=== PATIENT | female | born 1975 | race African-American/Black ===

== ENCOUNTER 2017-02-25 06:27 | Emergency (ER) | payer SELFPAY ==
[~2017-02-25] VITALS: Ht 162.6 cm; Wt 65.0 kg
[2017-02-25 06:29] VITALS: BP 188/83; PULSE 95; RESP 16; TEMP 98; O2SAT 100
[2017-02-25 06:46] VITALS: TEMP 98.5
[2017-02-25] MEDS ORDERED: SODIUM CHLOR 0.9% 1000 ML INJ 1,000 ML IV SCH (06:46)
--- NOTE | 2017-02-25 06:54 | PD ---
HPI Chief Complaint: Abdominal Pain Time Seen by Provider: 06:46 Travel History International Travel<30 days: No Contact w/Intl Traveler<30days: No Traveled to known affect area: No History of Present Illness HPI 41 year-old female presents to the emergency department by private transportation for complaint of 10 over 10 periumbilical abdominal pain. Patient states she's had abdominal discomfort for approximately 4 days. Patient reports she was awakened from sleep on Sunday morning with severe abdominal pain. Patient states she has not had a bowel movement since one week. Patient states she took milk of magnesia with loose diarrheal type stool times one and then again this morning was awakened from sleep and took an additional dose of milk of magnesia with a loose diarrheal like stool. Patient has had nausea and vomiting. Patient has vomited bile. Patient denies any coffee-ground emesis hematemesis melena or hematochezia. Patient denies any fever or chills. Patient states attempting to eat make symptoms worse. Patient denies any previous abdominal surgeries. Patient denies any dysuria frequency urgency hematuria or flank pain. Patient denies personal history of CAD, hypertension, dyslipidemia, diabetes, peptic ulcer disease, biliary colic, pancreatitis, colitis. Patient denies pain referred to the right lower quadrant or left lower quadrant. Patient was told disease she had an umbilical hernia but has not noticed any area of soft tissue swelling or point tenderness. Patient admits to remote tubal ligation, tobacco use, and 2 beers per day alcohol use. [facility] Past Medical History Narrative Medical Tubal ligation, tobacco use, alcohol use; nursing notes reviewed Medical History: Denies Significant Hx Diminished Hearing: No Tetanus Vaccination: > 5 Years Influenza Vaccination: No ?: Not Tubal Ligation: Yes (19 years ago) Past Surgical History Surgical History: No Previous Surgery Social History Alcohol Use: Yes (2 beers daily) Tobacco Use: Yes Substance Use: Yes (marijuana occaisonally ) Allergies-Medications (Allergen,Severity, Reaction): Coded Allergies: No Known Allergies (Unverified , 02/25/17) Reported Meds & Prescriptions Reported Meds & Active Scripts Active No Active Prescriptions or Reported Medications Review of Systems Except as stated in HPI: all other systems reviewed are Neg General / Constitutional: No: Fever, Chills HENT: No: Congestion Cardiovascular: No: Chest Pain or Discomfort Respiratory: No: Shortness of Breath Gastrointestinal: Positive: Nausea, Vomiting, Abdominal Pain, Constipation, No : Diarrhea, Hematemesis, Hematochezia, Loss of Appetite Genitourinary: No: Dysuria, Flank Pain Musculoskeletal: No: Myalgias, Arthralgias Skin: No Rash Neurologic: No: Weakness Psychiatric: Positive: Anxiety Hematologic/Lymphatic: No: Lymph Node Enlargement Physical Exam Narrative GENERAL: Well-developed well-nourished pleasant female in obvious discomfort intermittently tearful. SKIN: Warm and dry. HEAD: Normocephalic. EYES: No scleral icterus. No injection or drainage. NECK: Supple, trachea midline. No JVD or lymphadenopathy. CARDIOVASCULAR: Regular rate and rhythm without murmurs, gallops, or rubs. RESPIRATORY: Breath sounds equal bilaterally. No accessory muscle use. GASTROINTESTINAL: Abdomen soft, reproducible periumbilical tenderness without mass or reducible mass without guarding or rebound, nondistended. MUSCULOSKELETAL: No cyanosis, or edema. BACK: Nontender without obvious deformity. No CVA tenderness. Data Data Last Documented VS Vital Signs Date Time Temp Pulse Resp B/P Pulse Ox O2 Delivery O2 Flow Rate FiO2 02/25/17 06:46 98.5 02/25/17 06:29 95 16 188/83 100 Room Air Orders Complete Blood Count With Diff (02/25/17 06:46) Comprehensive Metabolic Panel (02/25/17 06:46) Lipase (02/25/17 06:46) Urinalysis - C+S If Indicated (02/25/17 06:46) Ct Abd/Pel W Iv Contrast(Rout) (02/25/17 06:46) Iv Access Insert/Monitor (02/25/17 06:46) Ecg Monitoring (02/25/17 06:46) Oximetry (02/25/17 06:46) Ondansetron Inj (Zofran Inj) (02/25/17 07:00) Sodium Chlor 0.9% 1000 Ml Inj (Ns 1000 M (02/25/17 06:46) Sodium Chloride 0.9% Flush (Ns Flush) (02/25/17 07:00) Chest, Single Ap (02/25/17 06:46) Morphine Inj (Morphine Inj) (02/25/17 07:00) Electrocardiogram (02/25/17 ) MDM Medical Decision Making Medical Screen Exam Complete: Yes Emergency Medical Condition: Yes Medical Record Reviewed: Yes Differential Diagnosis Abdominal pain, pancreatitis, hernia, biliary colic, diverticulitis, appendicitis, obstipation Narrative Course Patient placed on monitor; IV access obtained; patient administered Zofran 4 mg IV morphine sulfate 3 mg IV; EKG ordered Patient's care will be signed over to oncoming physician, Dr Rayo, at 7:00 AM for follow-up of pending diagnostics and patient disposition. Sepsis Criteria SIRS Criteria (2 or more): Heart rate over 90 Scripts No Active Prescriptions or Reported Meds Clementina Beckford MD Feb 25, 2017 06:54
[2017-02-25] MEDS ORDERED: MORPHINE SULFATE 4 MG/ML INJ IV PUSH ONE (07:00)
[2017-02-25] MEDS ORDERED: ONDANSETRON HCL 4 MG/2 ML VIAL IVP ONE (07:00)
[2017-02-25] MEDS ORDERED: SODIUM CHLORIDE 0.9% FLUSH 10 ML FLUSH IV FLUSH PRN (07:00)
--- NOTE | 2017-02-25 07:04 | PD ---
Physical Exam Date Seen by Provider: Feb 25, 2017 Narrative GENERAL: SKIN: Warm and dry. HEAD: Atraumatic. Normocephalic. EYES: Pupils equal and round. No scleral icterus. No injection or drainage. ENT: No nasal bleeding or discharge. Mucous membranes pink and moist. NECK: Trachea midline. No JVD. CARDIOVASCULAR: Regular rate and rhythm. RESPIRATORY: No accessory muscle use. Clear to auscultation. Breath sounds equal bilaterally. GASTROINTESTINAL: Abdomen soft, RLQ ARE WITH TTP, nondistended. Hepatic and splenic margins not palpable. MUSCULOSKELETAL: Extremities without clubbing, cyanosis, or edema. No obvious deformities. NEUROLOGICAL: Awake and alert. No obvious cranial nerve deficits. Motor grossly within normal limits. Five out of 5 muscle strength in the arms and legs. Normal speech. PSYCHIATRIC: Appropriate mood and affect; insight and judgment normal. Data Data Last Documented VS Vital Signs Date Time Temp Pulse Resp B/P Pulse Ox O2 Delivery O2 Flow Rate FiO2 02/25/17 07:13 98.1 76 16 159/83 100 Room Air Orders Complete Blood Count With Diff (02/25/17 06:46) Comprehensive Metabolic Panel (02/25/17 06:46) Lipase (02/25/17 06:46) Urinalysis - C+S If Indicated (02/25/17 06:46) Ct Abd/Pel W Iv Contrast(Rout) (02/25/17 06:46) Iv Access Insert/Monitor (02/25/17 06:46) Ecg Monitoring (02/25/17 06:46) Oximetry (02/25/17 06:46) Ondansetron Inj (Zofran Inj) (02/25/17 07:00) Sodium Chlor 0.9% 1000 Ml Inj (Ns 1000 M (02/25/17 06:46) Sodium Chloride 0.9% Flush (Ns Flush) (02/25/17 07:00) Chest, Single Ap (02/25/17 06:46) Morphine Inj (Morphine Inj) (02/25/17 07:00) Electrocardiogram (02/25/17 ) Iohexol 350 Inj (Omnipaque 350 Inj) (02/25/17 08:16) Labs Laboratory Tests Test 02/25/17 02/25/17 06:55 08:25 White Blood Count 12.9 TH/MM3 Red Blood Count 4.48 MIL/MM3 Hemoglobin 13.1 GM/DL Hematocrit 39.3 % Mean Corpuscular Volume 87.8 FL Mean Corpuscular Hemoglobin 29.2 PG Mean Corpuscular Hemoglobin 33.3 % Concent Red Cell Distribution Width 15.2 % Platelet Count 275 TH/MM3 Mean Platelet Volume 9.6 FL Neutrophils (%) (Auto) 74.5 % Lymphocytes (%) (Auto) 17.6 % Monocytes (%) (Auto) 5.6 % Eosinophils (%) (Auto) 1.7 % Basophils (%) (Auto) 0.6 % Neutrophils # (Auto) 9.6 TH/MM3 Lymphocytes # (Auto) 2.3 TH/MM3 Monocytes # (Auto) 0.7 TH/MM3 Eosinophils # (Auto) 0.2 TH/MM3 Basophils # (Auto) 0.1 TH/MM3 CBC Comment DIFF FINAL Differential Comment Sodium Level 141 MEQ/L Potassium Level 4.3 MEQ/L Chloride Level 107 MEQ/L Carbon Dioxide Level 26.7 MEQ/L Anion Gap 7 MEQ/L Blood Urea Nitrogen 9 MG/DL Creatinine 0.78 MG/DL Estimat Glomerular Filtration 98 ML/MIN Rate Random Glucose 93 MG/DL Calcium Level 9.0 MG/DL Total Bilirubin 0.2 MG/DL Aspartate Amino Transf 19 U/L (AST/SGOT) Alanine Aminotransferase 21 U/L (ALT/SGPT) Alkaline Phosphatase 114 U/L Total Protein 7.5 GM/DL Albumin 3.8 GM/DL Lipase 167 U/L Urine Color LIGHT-YELLOW Urine Turbidity CLEAR Urine pH 7.5 Urine Specific [place] 1.015 Urine Protein NEG mg/dL Urine Glucose (UA) NEG mg/dL Urine Ketones NEG mg/dL Urine Occult Blood NEG Urine Nitrite NEG Urine Bilirubin NEG Urine Urobilinogen LESS THAN 2.0 MG/DL Urine Leukocyte Esterase NEG Urine Squamous Epithelial 1 /hpf Cells Microscopic Urinalysis Comment CULT NOT INDICATED MDM Medical Record Reviewed: Yes Supervised Visit with EDI: No Interpretation(s) NSR 78, NL INTERVALS, NO STEMI PATTERN NOTED Differential Diagnosis COLITIS V DIVERTIC VS APPY Narrative Course received sign out at [address] feng, currently patient is resting comfortably and awaiting labs/ct results. OF 0830 CBC AND CMP ALL WNL, CXR WNL, CT A/P DONE BUT AWAITING RESULTS, PT CONTINUES TO BE COMFORTABLE FROM A PAIN STANDPOINT. PT ADVISED OF ALL RESULTS WHICH INCLUDE COLITIS, WILL GIVE ABX PO X 1 AND D/C HOME PATIENT IS STABLE AND TOLERATING PO Diagnosis Primary Impression: ASCENDING COLITIS WITHOUT ABSCESS Patient Instructions: Colitis (ED), General Instructions Scripts Metronidazole (Flagyl)500 Mg Abl313 Mg PO TID #21 TAB Ref 0 Prov:Ruben Rayo MD 02/25/17 Ondansetron Odt (Zofran Odt)4 Mg Tab4 Mg SL Q6HR PRN (Nausea/Vomiting) #12 TAB Prov:Ruben Rayo MD 02/25/17 Tramadol (Ultram)50 Mg Tab50 Mg PO Q4H PRN (PAIN) #28 TAB Prov:Ruben Rayo MD 02/25/17 Ciprofloxacin 500 Mg Xna504 Mg PO BID #14 TAB Prov:Ruben Rayo MD 02/25/17 Disposition: 01 DISCHARGE HOME Condition: Stable Ruben Rayo MD Feb 25, 2017 07:04
[2017-02-25 07:13] VITALS: BP 159/83; PULSE 76; RESP 16; TEMP 98.1; O2SAT 100
[2017-02-25 07:23] LABS: AUTOMATED NEUTROPHIL # 9.6 TH/MM3 (1.8-7.7); BASOPHIL # 0.1 TH/MM3 (0-0.2); BASOPHIL % 0.6 % (0.0-2.0); EOSINOPHIL # 0.2 TH/MM3 (0-0.4); EOSINOPHIL % 1.7 % (0.0-4.0); HEMATOCRIT 39.3 % (35.0-46.0); HEMO FLAGS DIFF FINAL; LYMPH % 17.6 % (9.0-44.0); LYMPHOCYTE # 2.3 TH/MM3 (1.0-4.8); MEAN CELL VOLUME 87.8 FL (80.0-100.0); MEAN CORPUSCULAR HEMOGLOBIN 29.2 PG (27.0-34.0); MEAN CORPUSCULAR HGB CONC 33.3 % (32.0-36.0); MONO % 5.6 % (0.0-8.0); NEUT % 74.5 % (16.0-70.0); PLATELET COUNT 275 TH/MM3 (150-450); RED BLOOD COUNT 4.48 MIL/MM3 (4.00-5.30); RED CELL DISTRIBUTION WIDTH 15.2 % (11.6-17.2); WHITE BLOOD COUNT 12.9 TH/MM3 (4.0-11.0)
[2017-02-25 07:43] LABS: ALKALINE PHOSPHATASE 114 U/L (45-117); TOTAL BILIRUBIN ADULT 0.2 MG/DL (0.2-1.0)
[2017-02-25 07:44] LABS: ALT (GPT) 21 U/L (10-53); ANION GAP 7 MEQ/L (5-15); AST (GOT) 19 U/L (15-37); BICARBONATE 26.7 MEQ/L (21.0-32.0); BLOOD UREA NITROGEN 9 MG/DL (7-18); CHLORIDE 107 MEQ/L (98-107); GLOMERULAR FILTRATION RATE 98 ML/MIN (>89); POTASSIUM 4.3 MEQ/L (3.5-5.1); SODIUM (NA) 141 MEQ/L (136-145)
[2017-02-25] MEDS ORDERED: IOHEXOL 350 MG/ML 10 ML VIAL (for RAD DIAG) IV ONE (08:16)
--- NOTE | 2017-02-25 08:24 | RADRPT ---
EXAM DATE/TIME: 02/25/2017 07:31 [facility] COMPARISON: No previous studies available for comparison. INDICATIONS : Upper abdominal pain.Evaluate for free air. MEDICAL HISTORY : None. SURGICAL HISTORY : None. ENCOUNTER: Initial ACUITY: 4 - 6 days PAIN SCORE: 6/10 LOCATION: Bilateral lower chest FINDINGS: A single view of the chest demonstrates the lungs to be symmetrically aerated without evidence of mas s, infiltrate or effusion. The cardiomediastinal contours are unremarkable. Osseous structures are intact. CONCLUSION: No acute disease. Zenon Sykes MD on February 25, 2017 at 8:20 Board Certified Radiologist. This report was verified electronically.
--- NOTE | 2017-02-25 08:44 | RADRPT ---
EXAM DATE/TIME: 02/25/2017 08:13 [facility] COMPARISON: No previous studies available for comparison. INDICATIONS : Periumbilical pain for one week. IV CONTRAST: 81 cc Omnipaque 350 (iohexol) IV ORAL CONTRAST: No oral contrast ingested. RADIATION DOSE: 8.22 CTDIvol (mGy) MEDICAL HISTORY : None SURGICAL HISTORY : Tubal ligation. ENCOUNTER: Initial ACUITY: 1 week PAIN SCALE: 7/10 LOCATION: umbilical abdomen TECHNIQUE: Volumetric scanning of the abdomen and pelvis was performed. Using automated exposure control and ad justment of the mA and/or kV according to patient size, radiation dose was kept as low as reasonably achievable to obtain optimal diagnostic quality images. FINDINGS: Lung bases are clear. There is a mild mural thickening of the colon, especially the right colon with pericolonic mild fat s tranding characteristic of a mild colitis predominantly on the right. The appendix is normal in calib er. No acute findings in the liver, spleen, adrenals, kidneys or pancreas. Calcified gallstone in the gal lbladder without biliary ductal dilatation. The uterus has a multilobulated appearance with a 4.4 cm fibroid on the right side. There is also a 1 .7 cm nodule that protrudes into the endometrial cavity with endometrial fluid present. This of uncer tain etiology. Cannot exclude an endometrial polyp. No pelvic adenopathy or free fluid. CONCLUSION: 1. Mild colitis, predominantly involving the right colon with some mural thickening and pericolonic f at stranding. Appendix normal in caliber. 2. 1.7 cm nodule protruding into the endometrial cavity. Differential diagnosis includes fibroid or e ndometrial polyp. There is also a more typical appearing fibroid on the right side of the uterus stevenson uring up to 4.4 cm in diameter as well as numerous additional smaller fibroids. 3. Cholelithiasis. Zenon Sykes MD on February 25, 2017 at 8:38 Board Certified Radiologist. This report was verified electronically.
[2017-02-25 08:51] LABS: BLOOD, URINE NEG (NEG); GLUCOSE,URINE NEG (NEG); KETONE, URINE NEG (NEG); NITRITE,URINE NEG (NEG); PH, URINE 7.5 (5.0-8.5); SQUAMOUS EPITHELIAL CELL URINE 1 /hpf (0-5); URINE COLOR LIGHT-YELLOW (YELLW/STRAW)
[2017-02-25 08:54] LABS: COMMENT (UR) CULT NOT INDICATED; CULTURE IF INDICATED CULT NOT INDICATED
[2017-02-25] MEDS ORDERED: METR-1 PO (09:25)
[2017-02-25] MEDS ORDERED: ZOFR4TAB3 SL (09:25)
[2017-02-25] MEDS ORDERED: ULTR50TA5 PO (09:25)
[2017-02-25] MEDS ORDERED: CIPR500T2 PO (09:25)
[2017-02-25] MEDS ORDERED: LEVOFLOXACIN 500 MG TAB PO ONE (09:30)
[2017-02-25] MEDS ORDERED: metroNIDAZOLE 500 MG TAB PO ONE (09:30)
[2017-02-25 09:42] VITALS: BP 144/87; PULSE 96; RESP 17; O2SAT 100
--- NOTE | 2017-02-25 12:10 | EKG ---
Date Performed: 02/25/2017 Time Performed: 07:10:31 PTAGE: 41 years EKG: Sinus rhythm NORMAL ECG NO PREVIOUS TRACING DOCTOR: Terry Sharpe Interpretating Date/Time 02/25/2017 12:09:11
== END 2017-02-25 10:08 | disposition home or self-care (01) ==
LOC: NEPC 06:27
DX: K52.89 Other specified noninfective gastroenteritis and colitis (principal); K80.20 Calculus of gallbladder without cholecystitis without obstruction; D25.9 Leiomyoma of uterus, unspecified; Z72.0 Tobacco use
CPT/HCPCS: 71010; 74177; 80053; 81001; 83690; 85025; 93005; 96374; 99285; J2270; J2405; J7030; Q9967